=== PATIENT | female | born 1985 | race Caucasian/White ===

== ENCOUNTER 2024-08-06 17:56 | Emergency (ER) | payer BC, SELFPAY ==
--- NOTE | 2024-08-06 18:09 | ED.GENMED ---
ED Provider Triage
<Isaac Snyder Jr., PA-C - Last Filed: 08/06/24 18:13>
-
Patient seen by provider in Triage?: Seen in Triage
Attestation: A medical screening examination has been initiated by a qualified medical provider. Based on the assessment performed at this time, it has been determined that an emergent medical condition may exist and the patient has been informed
that further medical evaluation and possible additional diagnostic testing may be needed.
HPI: 39-year-old female presenting with concerns of swelling and redness to the left great toe over the past few weeks has been taking Augmentin for the last few days without any improvement. This was assessed briefly by me, this appears to be an
ingrown toenail with associated redness and swelling likely infection. Initial x-ray ordered.
GENERAL: Alert , in no apparent distress
EYE: No visual abnormalities.
NECK: Trachea midline
ENT: No visible abnormalities.
LUNGS: No acute respiratory distress
NEUROLOGICAL: Alert and oriented
SKIN: Skin intact. No visible changes.
MUSCULOSKELETAL: Moving extremities normally
PSYCH: Normal and appropriate interaction.
This is a medical evaluation conducted in person to initiate diagnostic evaluation and provide initial therapeutics. Please see further documentation by the treating clinician. Abscess to left great toe
History of Present Illness
<Isaac Snyder Jr., PA-C - Last Filed: 08/06/24 18:13>
General
Chief Complaint: Skin Problem
Time Seen by Provider: 08/06/24 20:09
<Ra Harris DO - Last Filed: 08/06/24 20:28>
History of Present Illness
History of Present Illness:
TIME OF INITIAL ENCOUNTER: 8:10 PM
HPI: Over the last few days, the patient's been having increasing left toe pain. She denies injury. She states that she recently gave her self a pedicure. She was placed on Augmentin by urgent care with no improvement. She has had no fevers.
She does have a rather significant pain. She does have pain that radiates up towards the midfoot.
EXAM:
GENERAL: Well appearing in no distress
HEENT: Moist oral mucosa
NEUROLOGIC: Excellent strength all extremities, no obvious coordination deficits
PSYCHIATRIC: Appropriate mental status, normal insight and judgement
EXTREMITIES: There is erythema most notable near the cuticle consistent with paronychia of the left first toe
SKIN: No rash, no lesions
NUMBER AND COMPLEXITY OF PROBLEMS ADDRESSED AT THE ENCOUNTER
� Chronic conditions affecting care: PTSD, hypothyroidism, migraines
� Acute Exacerbation and/or Progression of Chronic Illness: This is an acute problem
� Differential Diagnosis includes: Paronychia, cellulitis, abscess
AMOUNT AND/OR COMPLEXITY OF DATA TO BE REVIEWED AND ANALYZED
� I performed an independent evaluation of and my interpretation is:
EKG:
CT:
X-rays: X-rays reviewed and show no sign of fracture
Laboratory Studies:
Other:
� Review of other/old records: I reviewed records, the patient was seen here with abdominal pain both in 2016 and 2022
� Clinical information was obtained by an independent historian: I spoke to significant other at bedside
� Prescriptions/Medications Considered but not given: No indication for narcotic analgesia
� Further testing considered but not performed: No clear indication for blood work at this time, vital signs are not consistent with sepsis
RISK OF COMPLICATIONS AND/OR MORBIDITY OR MORTALITY OF PATIENT MANAGEMENT
� Social determinants of health affecting care: Lives at home
� Discussion with other providers:
� Escalation of care including admission/observation vs risk of discharge considered: I did attempt incision and drainage with a scalpel however there was no pus that was removed. Will switch antibiotics from Augmentin to
Bactrim and she will continue soaks.
ANY OTHER UPDATES:
Past History
<Isaac Snyder Jr., PA-C - Last Filed: 08/06/24 18:13>
Past History
ED Past Medical History: None
ED Past Surgical History: None
Social History
Living: with family
Phy Exam
<Ra Harris DO - Last Filed: 08/06/24 20:28>
Physical Exam
Physical Exam:
See HPI
Course
<Isaac Snyder Jr., PA-C - Last Filed: 08/06/24 18:13>
Orders/Labs/Results
Orders:
Orders
08/06/24 17:57
Toes 2 Views, Left CR [CR Toe(s) Min 2 Vw Left] Urgent
Comment:
Reason For Exam: pain
Indicate Which Toe:: Great
08/06/24 20:20
Ketorolac [Toradol] 30 mg IM NOW STA
08/06/24 20:21
Sulfamethox./Trimethoprim Ds [Bactrim Ds 800 mg/160 mg] 1 tablet PO NOW STA
Vital Signs
Initial and Last Documented VS:
Initial Vital Signs
Temp Pulse Resp BP Pulse Ox
36.8 C 90 18 117/80 100
08/06/24 18:10 08/06/24 18:10 08/06/24 18:10 08/06/24 18:10 08/06/24 18:10
Last Documented Vital Signs
Temp Pulse Resp BP Pulse Ox
36.8 C 93 18 102/62 100
08/06/24 18:10 08/06/24 20:10 08/06/24 20:10 08/06/24 20:10 08/06/24 18:10
<Ra Harris DO - Last Filed: 08/06/24 20:28>
Orders/Labs/Results
Orders:
Orders
08/06/24 17:57
Toes 2 Views, Left CR [CR Toe(s) Min 2 Vw Left] Urgent
Comment:
Reason For Exam: pain
Indicate Which Toe:: Great
08/06/24 20:20
Ketorolac [Toradol] 30 mg IM NOW STA
08/06/24 20:21
Sulfamethox./Trimethoprim Ds [Bactrim Ds 800 mg/160 mg] 1 tablet PO NOW STA
Vital Signs
Initial and Last Documented VS:
Initial Vital Signs
Temp Pulse Resp BP Pulse Ox
36.8 C 90 18 117/80 100
08/06/24 18:10 08/06/24 18:10 08/06/24 18:10 08/06/24 18:10 08/06/24 18:10
Last Documented Vital Signs
Temp Pulse Resp BP Pulse Ox
36.8 C 93 18 102/62 100
08/06/24 18:10 08/06/24 20:10 08/06/24 20:10 08/06/24 20:10 08/06/24 18:10
<Ra Harris DO - Last Filed: 08/06/24 20:28>
*Critical Care Note
Total Time (30-74mins, 75-104mins- exclusive of procedures): Not Applicable
ED Attending Note
<Isaac Snyder Jr., PA-C - Last Filed: 08/06/24 18:13>
-
Portions of this chart may have been created with voice recognition software.� Occasional wrong word or��sound alike� substitutions may have occurred due to the inherent limitations of voice recognition software.
Discharge Plan
Departure
Patient Disposition: Home (Routine Discharge)
Date of Disposition: 08/06/24
Time of Disposition: 20:21
Patient with high blood pressure during this ER visit?: No
Discharge Problem:
Paronychia
Instructions: Paronychia ED
Prescriptions:
New
sulfamethoxazole-trimethoprim [Bactrim DS] 800-160 mg tablet
1 tab PO BID Qty: 14 0RF
No Action
docusate sodium [Colace] 100 mg capsule
100 mg PO DAILY Qty: 20 0RF
oxycodone-acetaminophen [Percocet] 5-325 mg Tablet
1 tab PO Q6HPRN PRN (Reason: pain) Qty: 7 0RF
diclofenac sodium 75 mg tablet,delayed release (DR/EC)
75 mg PO BID Qty: 10 0RF
Referrals:
NONE,* [Family Provider] -
Activity Restrictions/Additional Instructions:
Continue the soaks. We gave a shot of Toradol. Please follow-up with your primary care doctor. I recommend 3-4 [id number] ibuprofen (Motrin) every 8 hours with food for a few days. Return here if worse. Stop Augmentin and we will start
Bactrim. I sent a prescription for Bactrim to your pharmacy.
Interventions
Interventions:
*Risk Screen - Suicide Last Done: 08/06/24 18:10
*General Assessment Last Done: 08/06/24 20:10
*Neglect/Abuse Screening Last Done: 08/06/24 18:10
ED- Fall Risk Assessment Last Done: 08/06/24 20:11
*ED COVID-19 Vaccine History Last Done: 08/06/24 18:17
ED-Skin Assessment Last Done: 08/06/24 20:10
Discharge Date and Time
Print Language: SAUDI ARABIAN
[2024-08-06 18:10] VITALS: BP 117/80
[2024-08-06 20:10] VITALS: BP 102/62
[2024-08-06] MEDS: BACTRIM DS 800 MG/160 MG 1 TABLET PO (20:40)
[2024-08-06] MEDS: TORADOL 30 MG IM (20:41)
== END 2024-08-06 20:46 | disposition home or self-care (01) ==
LOC: EMR 17:56
PROVIDERS: EMERGENCY PHYSICIAN Emergency Medicine
DX: L03.032 Cellulitis of left toe (principal)
CPT/HCPCS: 99282; 96372; 73660